=== PATIENT | female | born 1955 | race Caucasian/White ===

== ENCOUNTER → 2017-01-06 | Outpatient (CLI) | payer BC ==
[~2017-01-06] MED LIST: AUGMENTIN PO
--- NOTE | ~2017-01-06 | CR184 ---
[facility] A Service of [facility] RADIOLOGY TEXT RESULTS PATIENT: RUMA BELL LOCATION: [facility] : 51 UNIT #: [id number] AGE: [address]: Willow Plaza MD SEX: F ORDER DR: [id number] [facility] [address] [place], [place] [address] [id number] O MR#: [id number] Acc #: [id number] NAME: RUMA BELL : 1955 SEX: F STUDY DATE/TIME: 01/06/2017 11:46 UNIT: [facility] ROOM: STUDY DESCRIPTION: CR Lumbar Spine Min 4 Views Attending Physician: Willow Plaza M.D. Referring Physician: Willow Plaza M.D. Ordering Physician: Willow Plaza M.D. Primary Care Physician: Willow Plaza M.D. MEDICAL IMAGING REPORT This report is preliminary unless electronic signature is present EXAM Lumbar spine, 5 views COMPARISON None INDICATIONS 61-year-old female with low back pain radiating into the right leg for 1 month. FINDINGS There has been prior cholecystectomy. There is bulky degenerative facet hypertrophy bilaterally, right greater than left at L4-L5 and L3-4 and to a lesser at L5-S1. No pars defects are seen. There is degenerative grade 1 anterolisthesis of L3 on L4 and L4 on L5. There is disc height loss spanning from L2-L3 through L5-S1. No evidence of acute fracture. IMPRESSION 1. Multilevel degenerative disc height loss of the lumbar spine. Bulky degenerative facet disease seen bilaterally at L3-4 and L4-L5 and to lesser extent L5-S1. This is worse on the right at all these levels. 2. No evidence of pars defect. There is grade 1 degenerative anterolisthesis of L4 on L5 and L3 on L4. No evidence of acute fracture. Dictated by... Peng Suero M.D. THIS IS AN ELECTRONICALLY VERIFIED REPORT Peng Suero M.D. at 01/12/2017 9:09 AM BLM/rnr [facility] A Service of [facility] RADIOLOGY TEXT RESULTS PATIENT: RUMA BELL LOCATION: [facility] : 51 UNIT #: [id number] AGE: [address]: Willow Plaza MD SEX: F ORDER DR: TD: 01/07/2017 04:52 JOB #: [id number] MEDICAL IMAGING REPORT Page 1 of 1 COPY
--- NOTE | ~2017-01-06 | CR63 ---
[facility] A Service of [facility] RADIOLOGY TEXT RESULTS PATIENT: RUMA BELL LOCATION: [facility] : 51 UNIT #: [id number] AGE: [address]: Willow Plaza MD SEX: F ORDER DR: [id number] [facility] [address] [place], [place] [address] [id number] O MR#: [id number] Acc #: [id number] NAME: RUMA BELL : 1955 SEX: F STUDY DATE/TIME: 01/06/2017 11:37 UNIT: [facility] ROOM: STUDY DESCRIPTION: CR Chest 2 View Attending Physician: Willow Plaza M.D. Referring Physician: Willow Plaza M.D. Ordering Physician: Willow Plaza M.D. Primary Care Physician: Willow Plaza M.D. MEDICAL IMAGING REPORT This report is preliminary unless electronic signature is present EXAM 2 views of the chest COMPARISON None. HISTORY 61-year-old female with cough and chest congestion for approximately 3 months. Dyspnea. FINDINGS There are prominent breast shadows over both lung bases. There has been prior cholecystectomy. Cardiomediastinal silhouette is within normal limits. No evidence of pneumothorax, pleural effusion or acute airspace disease. IMPRESSION No acute radiographic abnormality of the chest. Dictated by... Peng Suero M.D. THIS IS AN ELECTRONICALLY VERIFIED REPORT Peng Suero M.D. at 01/12/2017 9:08 AM BLM/pcl TD: 01/07/2017 04:37 JOB #: [id number] MEDICAL IMAGING REPORT Page 1 of 1 COPY
== END | disposition home or self-care (01) ==
LOC: CRAD 11:22
DX: R05 Cough (principal); M47.26 Other spondylosis with radiculopathy, lumbar region; M47.27 Other spondylosis with radiculopathy, lumbosacral region; M43.16 Spondylolisthesis, lumbar region; M51.86 Other intervertebral disc disorders, lumbar region
CPT/HCPCS: 71020; 72110